=== PATIENT | female | born 1965 | race Caucasian/White ===

== ENCOUNTER → 2023-11-18 07:44 | Outpatient (REF) | payer OTHER, SELFPAY | LOC: HWWDC 07:44 | PROVIDERS: ATTENDING PHYSICIAN Obstetrics & Gynecology; FAMILY PHYSICIAN Family Medicine | DX: Z12.31 Encounter for screening mammogram for malignant neoplasm of breast (principal) | CPT/HCPCS: 77063; 77067 ==

== ENCOUNTER → 2025-04-25 08:09 | Outpatient (REF) | payer OTHER, SELFPAY | LOC: HWEVLT 08:09 | PROVIDERS: ATTENDING PHYSICIAN Radiology Vascular & Interventional Radiology | DX: I83.893 Varicose veins of bilateral lower extremities with other complications (principal) | CPT/HCPCS: 93970 ==

== ENCOUNTER → 2025-05-09 19:15 | Outpatient (REF) | payer OTHER, SELFPAY | LOC: WDC 19:15 | PROVIDERS: ATTENDING PHYSICIAN Obstetrics & Gynecology; FAMILY PHYSICIAN Nurse Practitioner Family | DX: Z12.31 Encounter for screening mammogram for malignant neoplasm of breast (principal) | CPT/HCPCS: 77063; 77067 ==

== ENCOUNTER → 2025-05-15 08:03 | Outpatient (REF) | payer OTHER, SELFPAY | LOC: RCS 08:03 | PROVIDERS: ATTENDING PHYSICIAN Thoracic Surgery (Cardiothoracic Vascular Surgery) | DX: I71.21 Aneurysm of the ascending aorta, without rupture (principal) | CPT/HCPCS: 71275; 93306; Q9967 ==

== ENCOUNTER → 2025-06-21 09:41 | Outpatient (REF) | payer OTHER, SELFPAY | LOC: HWEVLT 09:41 | PROVIDERS: ATTENDING PHYSICIAN Radiology Vascular & Interventional Radiology | DX: I83.891 Varicose veins of right lower extremity with other complications (principal) | CPT/HCPCS: 36478; C1769 ==

== ENCOUNTER → 2025-07-04 12:36 | Outpatient (REF) | payer OTHER, SELFPAY | LOC: HWEVLT 12:36 | PROVIDERS: ATTENDING PHYSICIAN Radiology Diagnostic Radiology | DX: I83.891 Varicose veins of right lower extremity with other complications (principal) | CPT/HCPCS: 93971 ==

== ENCOUNTER → 2025-07-04 12:37 | Outpatient (REF) | payer OTHER, SELFPAY | LOC: HWEVLT 12:37 | PROVIDERS: ATTENDING PHYSICIAN Radiology Diagnostic Radiology | DX: I83.892 Varicose veins of left lower extremity with other complications (principal) | CPT/HCPCS: 36471 ==